=== PATIENT | female | born 1950 | race African-American/Black ===

== ENCOUNTER → 2016-05-26 | Outpatient (CLI) | payer MEDICARE, BC ==
[2016-05-26 10:02] LABS: ALBUMIN 3.5 g/dL (3.4-5.0); CREATININE 0.9 mg/dL (0.6-1.0); GFR 75.8; POTASSIUM 3.5 mmol/L (3.5-5.1); TOTAL BILIRUBIN 0.7 mg/dL (0.2-1.0); TOTAL PROTEIN 6.9 g/dL (6.4-8.2)
[2016-05-26 10:03] LABS: CHOLESTEROL/HDL RATIO 2.4
== END | disposition home or self-care (01) ==
LOC: LAB 08:58
DX: I49.3 Ventricular premature depolarization (principal); E78.00 Pure hypercholesterolemia, unspecified
CPT/HCPCS: 36415; 80053; 80061; 83735

== ENCOUNTER → 2017-05-23 | Outpatient (CLI) | payer MEDICARE, BC | END | disposition home or self-care (01) | LOC: PNCL 08:04 | DX: M50.322 Other cervical disc degeneration at C5-C6 level (principal); G89.29 Other chronic pain; I10 Essential (primary) hypertension; M19.90 Unspecified osteoarthritis, unspecified site; Z86.79 Personal history of other diseases of the circulatory system; K21.9 Gastro-esophageal reflux disease without esophagitis; E78.5 Hyperlipidemia, unspecified; Z87.891 Personal history of nicotine dependence; Z98.890 Other specified postprocedural states; Z79.899 Other long term (current) drug therapy; Z79.82 Long term (current) use of aspirin | CPT/HCPCS: G0463 ==

== ENCOUNTER 2018-12-16 22:49 | Emergency (ER) | payer MEDICARE, BC ==
[~2018-12-16] VITALS: Ht 165.1 cm; Wt 77.3 kg
[~2018-12-16 22:49] MED LIST: ACET-704 PO; ASPI-612 PO; CARV12.511 PO; CLOP75TA PO; ISOS60TA2 PO; LISI10TA2 PO; NITR0.4T24 SL; SPIR25TA5 PO
--- NOTE | 2018-12-16 23:36 | RAD ---
Chest AP portable at 2248: Reason for examination: Cough. Comparison is made to previous study dated 07/12/2017. The heart size is enlarged but stable. Mediastinum is unremarkable. Lung vyas are clear. No acute bony abnormalities are seen. Impression: Cardiomegaly. No acute cardiopulmonary disease. Electronically signed by: Isabella Kim MD (12/16/2018 11:33 PM) [facility]
[2018-12-16 23:47] LABS: BASO % 0 % (0-3); EOS # 0.2 x10^3/uL (0.0-0.7); EOS % 4 % (0-3); HEMATOCRIT 37.4 % (36.0-47.0); HEMOGLOBIN 12.4 g/dL (12.0-15.5); LYMPH # 0.7 x10^3/uL (1.0-4.8); LYMPH % 10 % (24-48); MEAN CORPUSCULAR HEMOGLOBIN 31 pg (25-35); MEAN CORPUSCULAR HGB CONC 33 g/dL (31-37); MEAN CORPUSCULAR VOLUME 93 fL (79-100); MONO # 0.4 x10^3/uL (0.0-1.1); MONO % 7 % (0-9); NEUT # 5.4 x10^3/uL (1.8-7.7); NEUT % 80 % (31-73); PLATELET COUNT 360 x10^3/uL (140-400); RED CELL DISTRIBUTION WIDTH 14.2 % (11.5-14.5); WHITE BLOOD COUNT 6.8 x10^3/uL (4.0-11.0)
[2018-12-16 23:52] LABS: BILIRUBIN,URINE SMALL (NEG); CLARITY,URINE CLEAR; COLOR,URINE YELLOW; NITRITE,URINE NEGATIVE (NEG); PROTEIN,URINE NEGATIVE (NEG-TRACE)
[2018-12-16 23:57] LABS: HYALINE CASTS, URINE FEW /HPF
[2018-12-16 23:58] LABS: BACTERIA,URINE 0 /HPF (0-FEW); SQUAMOUS EPITHELIAL CELL,UR FEW /LPF; WBC,URINE OCC /HPF (0-4)
[2018-12-16 23:58] LABS: CALCIUM 9.1 mg/dL (8.5-10.1); GFR 66.7; POTASSIUM 3.8 mmol/L (3.5-5.1)
[2018-12-17] LABS: ALBUMIN 3.4 g/dL (3.4-5.0); MAGNESIUM 1.9 mg/dL (1.8-2.4); TOTAL BILIRUBIN 0.4 mg/dL (0.2-1.0); TOTAL PROTEIN 6.7 g/dL (6.4-8.2)
--- NOTE | 2018-12-17 00:02 | RAD ---
CT head without contrast PQRS statement: CT scans at this facility use dose reduction including either automated exposure control, iterative reconstructions, and /or weight based radiation dosing via mA and kV modification when appropriate to reduce radiation dose to as low as reasonably achievable. HISTORY: Slurred speech. TECHNIQUE: 5 mm axial noncontrast imaging skull base to vertex. FINDINGS: 1 cm cavitary lesion left cerebellum image 9 likely a small chronic infarct. No intracranial hemorrhage, mass, hydrocephalus, extra-axial fluid collections or infarction. No acute ischemic change. Imaged orbits, mastoids, paranasal sinuses and bones are unremarkable. IMPRESSION: No acute intracranial CT abnormality. Small chronic cerebellar infarct. Electronically signed by: Aniket Yeung MD (12/16/2018 11:59 PM) [facility]
[2018-12-17] MEDS ORDERED: AZIT250T PO (00:27)
[2018-12-17] MEDS ORDERED: BENZ100C PO (00:27)
--- NOTE | 2018-12-17 00:28 | PHYS DOC ---
Past Medical History Past Medical History: Hypertension, [place] Additional Past Surgical Histo: CARDIAC STENTS Alcohol Use: None Drug Use: None Adult General Chief Complaint Chief Complaint: SLURRED SPEECH HPI HPI Patient is a 68-year-old female who presents with complaint of cough, congestion, hoarseness and sore throat for the last few days. Patient is concerned that she may need an antibiotic. She states that her son told her that he wanted her to come in to the emergency room because he thought she had slurred speech for the last 3 days and was worried about the possibility of a stroke. Patient denies any lateralizing weakness and states that she feels like her speech is more due to the congestion. She denies any chest pain or shortness of breath. She also denies any headache. She denies any fever.[] Review of Systems Review of Systems Constitutional: Denies fever or chills [] HENT: Positive congestion and sore throat [] Respiratory: Positive cough without shortness of breath [] Cardiovascular: No additional information not addressed in HPI [] Musculoskeletal: Denies back pain or joint pain [] Integument: Denies rash or skin lesions [] Neurologic: Denies headache, focal weakness or sensory changes [] All other systems were reviewed and found to be within normal limits, except as documented in this note. Current Medications Current Medications Current Medications Medications (Trade) Dose Ordered Sig/Reddy Start Time Stop Time Status Last Admin Dose Admin Azithromycin (Zithromax) 500 mg 1X ONCE 12/17/18 01:00 12/17/18 00:57 DC 12/17/18 00:53 500 MG Allergies Allergies Allergies Coded Allergies Type Severity Reaction Last Updated Verified No Known Drug Allergies 05/12/17 No Physical Exam Physical Exam Constitutional: Well developed, well nourished, no acute distress, non-toxic appearance. [] HENT: Normocephalic, atraumatic, bilateral external ears normal, oropharynx moist, no oral exudates, nose normal. [] Eyes: PERRLA, EOMI, conjunctiva normal, no discharge. [] Neck: Normal range of motion, no tenderness, supple, no stridor. [] Cardiovascular: Regular rate and rhythm[] Lungs & Thorax: Bilateral breath sounds clear to auscultation [] Abdomen: Bowel sounds normal, soft, no tenderness. [] Skin: Warm, dry, no erythema, no rash. [] Extremities: No tenderness, no cyanosis, no clubbing, ROM intact. [] Neurologic: Alert and oriented X 3, no focal deficits noted. [] Current Patient Data Vital Signs Vital Signs Date Time Temp Pulse Resp B/P (MAP) Pulse Ox O2 Delivery O2 Flow Rate FiO2 12/17/18 00:30 96 20 107/63 (78) 100 Room Air 12/16/18 23:00 98.5 98.5 Lab Values Laboratory Tests Test 12/16/18 23:40 12/16/18 23:45 White Blood Count 6.8 x10^3/uL (4.0-11.0) Red Blood Count 4.00 x10^6/uL (3.50-5.40) Hemoglobin 12.4 g/dL (12.0-15.5) Hematocrit 37.4 % (36.0-47.0) Mean Corpuscular Volume 93 fL (79-100) Mean Corpuscular Hemoglobin 31 pg (25-35) Mean Corpuscular Hemoglobin Concent 33 g/dL (31-37) Red Cell Distribution Width 14.2 % (11.5-14.5) Platelet Count 360 x10^3/uL (140-400) Neutrophils (%) (Auto) 80 % (31-73) H Lymphocytes (%) (Auto) 10 % (24-48) L Monocytes (%) (Auto) 7 % (0-9) Eosinophils (%) (Auto) 4 % (0-3) H Basophils (%) (Auto) 0 % (0-3) Neutrophils # (Auto) 5.4 x10^3/uL (1.8-7.7) Lymphocytes # (Auto) 0.7 x10^3/uL (1.0-4.8) L Monocytes # (Auto) 0.4 x10^3/uL (0.0-1.1) Eosinophils # (Auto) 0.2 x10^3/uL (0.0-0.7) Basophils # (Auto) 0.0 x10^3/uL (0.0-0.2) Sodium Level 145 mmol/L (136-145) Potassium Level 3.8 mmol/L (3.5-5.1) Chloride Level 107 mmol/L (98-107) Carbon Dioxide Level 29 mmol/L (21-32) Anion Gap 9 (6-14) Blood Urea Nitrogen 13 mg/dL (7-20) Creatinine 1.0 mg/dL (0.6-1.0) Estimated GFR (Cockcroft-Gault) 66.7 BUN/Creatinine Ratio 13 (6-20) Glucose Level 178 mg/dL (70-99) H Calcium Level 9.1 mg/dL (8.5-10.1) Magnesium Level 1.9 mg/dL (1.8-2.4) Total Bilirubin 0.4 mg/dL (0.2-1.0) Aspartate Amino Transferase (AST) 23 U/L (15-37) Alanine Aminotransferase (ALT) 20 U/L (14-59) Alkaline Phosphatase 77 U/L (46-116) Total Protein 6.7 g/dL (6.4-8.2) Albumin 3.4 g/dL (3.4-5.0) Albumin/Globulin Ratio 1.0 (1.0-1.7) Urine Collection Type Unknown Urine Color Yellow Urine Clarity Clear Urine pH 6.0 Urine Specific [place] 1.025 Urine Protein Negative mg/dL (NEG-TRACE) Urine Glucose (UA) 100 mg/dL (NEG) Urine Ketones (Stick) Negative mg/dL (NEG) Urine Blood Small (NEG) Urine Nitrite Negative (NEG) Urine Bilirubin Small (NEG) Urine Urobilinogen Dipstick 1.0 mg/dL (0.2 mg/dL) Urine Leukocyte Esterase Small (NEG) Urine RBC 3-5 /HPF (0-2) Urine WBC Occ /HPF (0-4) Urine Squamous Epithelial Cells Few /LPF Urine Bacteria 0 /HPF (0-FEW) Urine Hyaline Casts Few /HPF Urine Mucus Mod /LPF Laboratory Tests 12/16/18 23:40 Laboratory Tests 12/16/18 23:40 EKG EKG [] Radiology/Procedures Radiology/Procedures [] Impressions: CT head without contrast PQRS statement: CT scans at this facility use dose reduction including either automated exposure control, iterative reconstructions, and /or weight based radiation dosing via mA and kV modification when appropriate to reduce radiation dose to as low as reasonably achievable. HISTORY: Slurred speech. TECHNIQUE: 5 mm axial noncontrast imaging skull base to vertex. FINDINGS: 1 cm cavitary lesion left cerebellum image 9 likely a small chronic infarct. No intracranial hemorrhage, mass, hydrocephalus, extra-axial fluid collections or infarction. No acute ischemic change. Imaged orbits, mastoids, paranasal sinuses and bones are unremarkable. IMPRESSION: No acute intracranial CT abnormality. Small chronic cerebellar infarct. Electronically signed by: Aniket Yeung MD (12/16/2018 11:59 PM) [facility] PROCEDURE: PORTABLE CHEST 1V Chest AP portable at 2248: Reason for examination: Cough. Comparison is made to previous study dated 07/12/2017. The heart size is enlarged but stable. Mediastinum is unremarkable. Lung vyas are clear. No acute bony abnormalities are seen. Impression: Cardiomegaly. No acute cardiopulmonary disease. Electronically signed by: Isabella Kim MD (12/16/2018 11:33 PM) [facility] Course & Med Decision Making Course & Med Decision Making Pertinent Labs and Imaging studies reviewed. (See chart for details) [] Dragon Disclaimer Dragon Disclaimer This electronic medical record was generated, in whole or in part, using a voice recognition dictation system. Departure Departure Impression: Primary Impression: Bronchitis Disposition: 01 HOME, SELF-CARE Condition: IMPROVED Referrals: NO PCP (PCP) Patient Instructions: Acute Bronchitis Scripts Benzonatate (TESSALON PERLE) 100 Mg Capsule 1 CAP PO TID PRN for COUGH, #21 CAP Prov: GAYATRI MUHAMMAD Jr. DO 12/17/18 Azithromycin (ZITHROMAX) 250 Mg Tablet 1 PKG PO UD, #6 TAB Prov: GAYATRI MUHAMMAD Jr. DO 12/17/18 GAYATRI MUHAMMAD Jr. DO Dec 17, 2018 00:27
[2018-12-17 00:30] VITALS: BP 107/63
[2018-12-17] MEDS ORDERED: AZITHROMYCIN 250 MG TABLET. PO ONE (01:00)
--- NOTE | 2018-12-17 05:47 | EKG ---
[facility] [address] [place] [address] Test Date: 2018-12-16 Test Time: 23:31:24 Pat Name: ADOLFO ORTIZ Department: Room: Gender: F Portrait Photographer: : 1950 Requested By: GAYATRI MUHAMMAD Order Number: [id number] Reading MD: Measurements Intervals [place] Rate: 88 P: 36 WI: 156 QRS: 62 QRSD: 94 T: -77 QT: 380 QTc: 463 Interpretive Statements SINUS RHYTHM COMPLEX(ES) WITH ABERRANT INTRAVENTRICULAR CONDUCTION VENTRICULAR PREMATURE COMPLEX(ES) LVH WITH REPOLARIZATION ABNORMALITY ABNORMAL ECG RI6.01 No previous ECG available for comparison
== END 2018-12-17 00:57 | disposition home or self-care (01) ==
LOC: ER 22:49
DX: J40 Bronchitis, not specified as acute or chronic (principal); R51 Headache; I10 Essential (primary) hypertension; I25.2 Old myocardial infarction
CPT/HCPCS: 36415; 70450; 71045; 80053; 81001; 83735; 85025; 93005; 99285; Q0144; 87086

== ENCOUNTER 2020-07-08 12:00 | Emergency (ER) | payer MEDICARE, BC ==
[~2020-07-08] VITALS: Ht 152.4 cm; Wt 57.0 kg
[~2020-07-08 12:00] MED LIST changes: -ASPI-612 PO; +ASPI-886 PO; +AZIT250T PO; +BENZ100C PO; -ISOS60TA2 PO; +ISOS60TA55 PO; +LISI10TA16 PO; -LISI10TA2 PO
[2020-07-08 12:40] LABS: BASO % 1 % (0-3); EOS # 0.1 x10^3/uL (0.0-0.7); EOS % 2 % (0-3); HEMATOCRIT 34.8 % (36.0-47.0); HEMOGLOBIN 11.1 g/dL (12.0-15.5); LYMPH # 0.6 x10^3/uL (1.0-4.8); LYMPH % 10 % (24-48); MEAN CORPUSCULAR HEMOGLOBIN 29 pg (25-35); MEAN CORPUSCULAR HGB CONC 32 g/dL (31-37); MEAN CORPUSCULAR VOLUME 90 fL (79-100); MONO # 0.3 x10^3/uL (0.0-1.1); MONO % 5 % (0-9); NEUT % 83 % (31-73); PLATELET COUNT 466 x10^3/uL (140-400); RED BLOOD COUNT 3.89 x10^6/uL (3.50-5.40); RED CELL DISTRIBUTION WIDTH 22.8 % (11.5-14.5)
[2020-07-08 12:51] LABS: CALCIUM 9.1 mg/dL (8.5-10.1); CREATININE 0.9 mg/dL (0.6-1.0); GFR 74.9; POTASSIUM 4.3 mmol/L (3.5-5.1)
[2020-07-08 13:00] LABS: ALBUMIN 3.5 g/dL (3.4-5.0); ALBUMIN/GLOBULIN RATIO 1.3 (1.0-1.7); TOTAL BILIRUBIN 0.9 mg/dL (0.2-1.0); TOTAL PROTEIN 6.2 g/dL (6.4-8.2)
--- NOTE | 2020-07-08 13:01 | RAD ---
XR CHEST 1V History: Reason: cough, covid? / Spl. Instructions: / History: Comparison: December 16, 2018 Findings: Multifocal ill-defined opacities bilaterally. No pleural effusion. Left costophrenic angle not well e valuated. Left-sided pacemaker. Increased enlarged cardiac size. Impression: 1. Multifocal ill-defined opacities bilaterally, may represent infection including viral pneumonia o r pulmonary edema. 2. Increased enlarged cardiac size, may indicate cardiomegaly and potential pericardial effusion. Electronically signed by: Yunior Camarena DO (07/08/2020 12:58 PM) [id number]
[2020-07-08 13:59] LABS: PLT ESTIMATE INCREASED (ADEQUATE)
[2020-07-08 14:00] LABS: ANISOCYTOSIS MOD; BIZZARE CELLS OCC; OVALOCYTES FEW
[2020-07-08] MEDS ORDERED: FUROSEMIDE 40 MG/4 ML VIAL. IVP ONE (14:00)
[2020-07-08] MEDS ORDERED: ACETAMINOPHEN 500 MG TABLET PO ONE (14:00)
[2020-07-08 17:11] VITALS: BP 108/77
--- NOTE | 2020-07-08 18:04 | ED.ADGEN ---
Past Medical History Past Medical History: CHF, Hypertension, [place] Additional Past Medical Histor: "MY SON SAYS I HAD A STROKE BUT I'M NOT SURE." "BOWEL LEAKAGE" Past Surgical History: Other Additional Past Surgical Histo: CARDIAC STENTS,DEFIBRILATOR PLACEMENT Smoking Status: Former Smoker Alcohol Use: None Drug Use: None General Adult EDM: Chief Complaint: SHORTNESS OF BREATH HPI: HPI: Patient is 70-year-old female who presents to the emergency room complaining of shortness of breath. Patient has known severe congestive heart failure. She typically follows up at . Patient states that over the last 24 hours she has had increasing shortness of breath. She states that she took some furosemide today. She states that she had been instructed to take it only every other day but feels like she is collecting fluid again now that she has decreased her furosemide. She denies any kind of chest pain. Patient is adamant that she does not want to be admitted to the hospital but does not want some help so she is able to go home. Review of Systems: Review of Systems: Complete ROS is negative unless otherwise documented in HPI Current Medications: Current Medications Medications (Trade) Dose Ordered Sig/Reddy Start Time Stop Time Status Last Admin Dose Admin Acetaminophen (Tylenol) 1,000 mg 1X ONCE 07/08/20 14:00 07/08/20 14:01 DC 07/08/20 14:09 1,000 MG Furosemide (Lasix) 40 mg 1X ONCE 07/08/20 14:00 07/08/20 14:01 DC 07/08/20 14:07 40 MG Lorazepam (Ativan Inj) 1 mg 1X ONCE 07/08/20 14:00 07/08/20 14:01 DC 07/08/20 14:08 1 MG Allergies: Allergies: Allergies Coded Allergies Type Severity Reaction Last Updated Verified No Known Drug Allergies 05/12/17 No Physical Exam: PE: General: Awake, alert, NAD. Well Nourished, well hydrated. Cooperative HEENT: Atraumatic, EOMI, PERRL, airway patent, moist oral mucosa Neck: Supple, trachea midline Respiratory: Decreased breath sounds bilaterally with diffuse crackles, normal effort CV: RRR, no murmur, cap refill <2, no edema GI: Soft, nondistended, nontender, no masses MSK: No obvious deformities Skin: Warm, dry, intact Neuro: A&O x3, speech NL, sensory and motor grossly intact, no focal deficits Psych: Normal affect, normal mood, not suicidal or homicidal Current Patient Data: Labs: Laboratory Tests Test 07/08/20 12:27 White Blood Count 6.0 x10^3/uL (4.0-11.0) Red Blood Count 3.89 x10^6/uL (3.50-5.40) Hemoglobin 11.1 g/dL (12.0-15.5) L Hematocrit 34.8 % (36.0-47.0) L Mean Corpuscular Volume 90 fL (79-100) Mean Corpuscular Hemoglobin 29 pg (25-35) Mean Corpuscular Hemoglobin Concent 32 g/dL (31-37) Red Cell Distribution Width 22.8 % (11.5-14.5) H Platelet Count 466 x10^3/uL (140-400) H Neutrophils (%) (Auto) 83 % (31-73) H Lymphocytes (%) (Auto) 10 % (24-48) L Monocytes (%) (Auto) 5 % (0-9) Eosinophils (%) (Auto) 2 % (0-3) Basophils (%) (Auto) 1 % (0-3) Neutrophils # (Auto) 5.0 x10^3/uL (1.8-7.7) Lymphocytes # (Auto) 0.6 x10^3/uL (1.0-4.8) L Monocytes # (Auto) 0.3 x10^3/uL (0.0-1.1) Eosinophils # (Auto) 0.1 x10^3/uL (0.0-0.7) Basophils # (Auto) 0.0 x10^3/uL (0.0-0.2) Platelet Estimate Increased (ADEQUATE) Large Platelets Few Anisocytosis Mod Ovalocytes Few RBC Morphology Bizarre Forms Occ Sodium Level 145 mmol/L (136-145) Potassium Level 4.3 mmol/L (3.5-5.1) Chloride Level 108 mmol/L (98-107) H Carbon Dioxide Level 28 mmol/L (21-32) Anion Gap 9 (6-14) Blood Urea Nitrogen 12 mg/dL (7-20) Creatinine 0.9 mg/dL (0.6-1.0) Estimated GFR (Cockcroft-Gault) 74.9 BUN/Creatinine Ratio 13 (6-20) Glucose Level 114 mg/dL (70-99) H Calcium Level 9.1 mg/dL (8.5-10.1) Total Bilirubin 0.9 mg/dL (0.2-1.0) Aspartate Amino Transferase (AST) 46 U/L (15-37) H Alanine Aminotransferase (ALT) 82 U/L (14-59) H Alkaline Phosphatase 87 U/L (46-116) Creatine Kinase 238 U/L (26-192) H Troponin I Quantitative 0.365 ng/mL (0.000-0.055) BF-Osy-Y-Type Natriuretic Peptide 71269 pg/mL (0-124) H Total Protein 6.2 g/dL (6.4-8.2) L Albumin 3.5 g/dL (3.4-5.0) Albumin/Globulin Ratio 1.3 (1.0-1.7) Laboratory Tests 07/08/20 12:27 Laboratory Tests 07/08/20 12:27 Vital Signs: Vital Signs Date Time Temp Pulse Resp B/P (MAP) Pulse Ox O2 Delivery O2 Flow Rate FiO2 07/08/20 17:11 100 108/77 (87) 98 BiPAP/CPAP 07/08/20 12:03 97.8 20 97.8 EKG: EKG: [] Heart Score: C/O Chest Pain: N/A Risk Factors: Risk Factors: DM, Current or recent (<one month) smoker, HTN, HLP, family history of CAD, obesity. Risk Scores: Score 0 - 3: 2.5% MACE over next 6 weeks - Discharge Home Score 4 - 6: 20.3% MACE over next 6 weeks - Admit for Clinical Observation Score 7 - 10: 72.7% MACE over next 6 weeks - Early Invasive Strategies Radiology/Procedures: Radiology/Procedures: [] Course & Med Decision Making: Course & Med Decision Making Pertinent Labs and Imaging studies reviewed. (See chart for details) Patient is 70-year-old female who presents to the emergency room with shortness of breath. Patient appears to be in acute on chronic congestive heart failure. Chest x-ray shows severe pulmonary edema. Patient has an elevated BNP and troponin at this time. Patient was given Lasix upon arrival. She is not requiring oxygen. Patient is very adamant about not being admitted to the hospital. She asked if there was any other way we could do this. I discussed with the patient that there was no safe way for me to discharge her home. I did discuss with her that we could try some treatments here in the emergency room that would help but would not make it safe for her to go home. Patient was given Lasix and was placed on BiPAP. She did have significant improvement in symptoms on BiPAP. Patient was offered admission again and declines. Patient will sign out AMA. Patient has requested to leave AGAINST MEDICAL ADVICE. I have discussed the benefits of staying for a full work up and the patient would like to leave. I discussed the risks of leaving including but not limited to , permenant end-organ damage, worsening of condition and patient stated understanding. Patient signed out against medical advice. Dragon Disclaimer: Dragon Disclaimer: This electronic medical record was generated, in whole or in part, using a voice recognition dictation system. Critical Care Time Critical Care: Authorized and Performed by: Claudia William MD Total critical care time: approximately 35 minutes Due to a high probability of clinically significant, life threatening deteriorat ion, the patient required my highest level of preparedness to intervene emergently and I personally spent this critical care time directly and personally managing the patient. This critical care time included obtaining a history; examining the patient; pulse oximetry; ventilator management if necess julianne; ordering and review of studies; arranging urgent treatment with development of a management plan; evaluation of patient's response to treatment; frequent reassessment; discussion with patient/family; and, discussions with other providers. This critical care time was performed to assess and manage the high probability of imminent, life-threatening deterioration that could result in multi-organ failure. It was exclusive of separately billable procedures and treating other patients and teaching time. Please see MDM section and the rest of the note for further information on patient assessment and treatment. Departure Departure Impression: Primary Impression: Acute on chronic congestive heart failure Additional Impression: Pulmonary edema Disposition: LEFT AGAINST MEDICAL ADVICE Condition: GUARDED Referrals: NO PCP (PCP) Problem Qualifiers CLAUDIA WILLIAM MD July 08, 2020 18:03
== END 2020-07-08 17:44 | disposition left against medical advice (07) ==
LOC: ER 12:00
DX: I11.0 Hypertensive heart disease with heart failure (principal); I50.1 Left ventricular failure, unspecified; I25.2 Old myocardial infarction
CPT/HCPCS: 36415; 71045; 80053; 82550; 83880; 84484; 85025; 93005; 94660; 96374; 96375; 99285; J1940; J2060

== ENCOUNTER 2021-02-15 02:04 | Emergency (ER) | payer MEDICARE, BC ==
[~2021-02-15] VITALS: Ht 165.1 cm; Wt 50.4 kg
[~2021-02-15 02:04] MED LIST changes: +APIX5TAB PO; +ATOR80TA72 PO; +FURO20TA3 PO; +GABA100C6 PO; +GABA300C18 PO; +LAMO25TA31 PO; +LOSA25TA PO; +METO-239 PO; +PANT40TA6 PO
--- NOTE | 2021-02-15 02:29 | PHYS DOC ---
Past Medical History Past Medical History: Anxiety, CHF, CVA, Hypertension, MA, Other Additional Past Medical Histor: "BOWEL LEAKAGE",RIB FX'S/LUNG PROBLEM Past Surgical History: Angioplasty, Other Additional Past Surgical Histo: CARDIAC STENTS,DEFIBRILATOR PLACEMENT Smoking Status: Never Smoker Alcohol Use: None Drug Use: None General Adult HPI: HPI: Patient is a 70 year old female who presents with shortness of breath. She has daily episodes of shortness of breath, and she admittedly also has anxiety. She has congestive heart failure. She was discharged from [facility] after 3-day inpatient stay for congestive heart failure exacerbation. She reports that she is actually much better than she was prior to her admission there. All of her cardiac care has been [facility]. She has a scheduled appointment to see her marking devices assembler later this month. She denies chest pain. She reports that her lower extremity swelling is much better than it usually is. She denies cough, hemoptysis, dizziness, diaphoresis. She does report some PND symptoms, which have been present for years, unchanged today. She has been living with her son and his family for the past year, and she reports that her son is admittedly frustrated with her frequent complaints of shortness of breath. He has reportedly asked her to address her anxiety and panic issues with her primary care physician, but she has not done this yet. She has no active dyspnea at present, reports that she feels better now that she is here. Review of Systems: Review of Systems: Constitutional: Denies fever or chills. [] Eyes: Denies change in visual acuity. [] HENT: Denies nasal congestion or sore throat. [] Respiratory: Denies cough. Reports shortness of breath and paroxysmal nocturnal dyspnea. Cardiovascular: Denies chest pain. She has chronic but improved lower extremity swelling. GI: Denies abdominal pain, nausea, vomiting Musculoskeletal: Denies back pain or joint pain. [] Integument: Denies rash. [] Neurologic: Denies headache, focal weakness or sensory changes. [] Psychiatric: Anxiety, insomnia, denies SI or HI. [] Heart Score: C/O Chest Pain: No Risk Factors: Risk Factors: DM, Current or recent (<one month) smoker, HTN, HLP, family history of CAD, obesity. Risk Scores: Score 0 - 3: 2.5% MACE over next 6 weeks - Discharge Home Score 4 - 6: 20.3% MACE over next 6 weeks - Admit for Clinical Observation Score 7 - 10: 72.7% MACE over next 6 weeks - Early Invasive Strategies Allergies: Allergies: Allergies Coded Allergies Type Severity Reaction Last Updated Verified No Known Drug Allergies 05/12/17 No Physical Exam: PE: Constitutional: Well developed, well nourished, no acute distress, non-toxic appearance. [] HENT: Normocephalic, atraumatic Eyes: Sclera are clear, anicteric Neck: Normal range of motion, no tenderness, supple, no stridor. Achy midline, no JVD Cardiovascular:Heart rate regular rhythm, precordial heave noted, systolic murmu r noted, +2 posterior tibial and +2 radial pulses bilaterally. Lungs & Thorax: Bilateral breath sounds clear to auscultation, no rales, rhonchi or wheezes. Equal chest rise. Speaks in full and clear sentences, no evidence of distress Abdomen: Abdomen soft, nondistended, nontender to palpation. Skin: Warm, dry, no erythema, no rash. [] Extremities: No tenderness, no cyanosis, no clubbing, ROM intact, no calf tenderness. Bilateral trace symmetric lower extremity pitting edema. Neurologic: Alert and oriented X 3, normal motor function, normal sensory function, no focal deficits noted. [] Psychologic: She is anxious, but she is pleasant and cooperative. EKG: EKG: EKG is interpreted at 0221 Rhythm is sinus Rate is 93 bpm [place] is right LVH No STEMI Radiology/Procedures: Radiology/Procedures: IMAGING REPORT Signed PATIENT: CLARK AGUIRRE CACCOUNT: [id number] : 1950 LOCATION: ER AGE: 70 SEX: F EXAM STATUS: PRE ER ORD. PHYSICIAN: SUKHWINDER VELASCO DO REASON: dyspnea PROCEDURE: PORTABLE CHEST 1V XR CHEST 1V INDICATION: dyspnea / Spl. Instructions: / History: . COMPARISON STUDY: None. FINDINGS: Left pectoral ICD/pacemaker Lungs: Hyperexpanded lung volume. No pulmonary mass or consolidation. The tracheobronchial tree and hilar structures are normal. Pleura: No pleural effusion or pneumothorax. Heart and Mediastinum: Marked cardiomegaly. The great vessels of the thorax are normal. IMPRESSION: No consolidation. Electronically signed by: Nidia Ingram MD (02/15/2021 3:19 AM) [facility] DICTATED and SIGNED BY: NIDIA INGRAM MD DATE: 02/15/21 [id number] Course & Med Decision Making: Course & Med Decision Making Pertinent Labs and Imaging studies reviewed. (See chart for details) I discussed the findings, differential diagnosis and plan of care with the patient. She does demonstrate evidence of significant cardiomegaly on chest x- ray, though there is no evidence of pulmonary edema. Oxygen saturation, on room air, is noted to be 99 to 100%. Blood pressure stable. Heart rate is stable. She denies any active dyspnea. She manifests no evidence of respiratory distress. She is already taking anticoagulant medication. She has been compliant with all dietary and medication treatment. There is no evidence of an acute congestive heart failure exacerbation. Her troponin is elevated, though serially trending downward, and I suspect her troponins are chronically elevated secondary to age-related conditions and chronic congestive heart failure. I recommend she contact her primary care physician to discuss her anxiety issues further, and I recommend she keep her appointment with her marking devices assembler at [facility]. She is comfortable with the plan for discharge home. Strict return precautions are given. She verbalized understanding. Brian Disclaimer: Brian Disclaimer: This electronic medical record was generated, in whole or in part, using a voice recognition dictation system. Departure Departure Impression: Primary Impression: Dyspnea Additional Impressions: Congestive heart failure (CHF) Anxiety Disposition: 01 HOME / SELF CARE / HOMELESS Condition: STABLE Referrals: NO PCP (PCP) Patient Instructions: Anxiety and Panic Attacks, Heart Failure Additional Instructions: Use the prescribed medicine as needed for sleep and anxiety. Continue to take your regularly prescribed medications by your marking devices assembler and primary care doctor. Continue to eat a low-sodium, heart healthy diet. Return to the ER for more severe shortness of breath, chest pain, vomiting, dizziness, weakness, if you are acutely injured or for any other concerns you may have. Keep your scheduled appointment with your marking devices assembler this month. Also see your primary care physician and discuss your physical symptoms and your anxiety symptoms further, you may ultimately benefit from taking a scheduled, daily medication to help with your anxiety symptoms. Scripts Hydroxyzine Pamoate (VISTARIL) 25 Mg Capsule 1 CAP PO BID for anxiety, #20 CAP 1 Refill Prov: SUKHWINDER VELASCO DO 02/15/21 SUKHWINDER VELASCO DO Feb 15, 2021 02:29
[2021-02-15 02:49] LABS: BASO # 0.1 x10^3/uL (0.0-0.2); BASO % 1 % (0-3); EOS # 0.3 x10^3/uL (0.0-0.7); EOS % 5 % (0-3); HEMATOCRIT 36.3 % (36.0-47.0); HEMOGLOBIN 11.6 g/dL (12.0-15.5); LYMPH # 0.8 x10^3/uL (1.0-4.8); LYMPH % 15 % (24-48); MEAN CORPUSCULAR HEMOGLOBIN 30 pg (25-35); MEAN CORPUSCULAR HGB CONC 32 g/dL (31-37); MEAN CORPUSCULAR VOLUME 92 fL (79-100); MONO # 0.3 x10^3/uL (0.0-1.1); MONO % 6 % (0-9); NEUT # 3.9 x10^3/uL (1.8-7.7); NEUT % 73 % (31-73); PLATELET COUNT 500 x10^3/uL (140-400); RED BLOOD COUNT 3.95 x10^6/uL (3.50-5.40); RED CELL DISTRIBUTION WIDTH 17.1 % (11.5-14.5); WHITE BLOOD COUNT 5.4 x10^3/uL (4.0-11.0)
--- NOTE | 2021-02-15 02:55 | EKG ---
[facility] [address] [place] [address] Test Date: 2021-02-15 Test Time: 02:18:55 Pat Name: CLARK AGUIRRE Department: Room: Gender: F Lab Intern: : 1950 Requested By: SUKHWINDER VELASCO Order Number: [id number] Reading MD: Measurements Intervals [place] Rate: 93 P: 59 MA: 188 QRS: 108 QRSD: 108 T: -69 QT: 374 QTc: 468 Interpretive Statements SINUS RHYTHM VENTRICULAR PREMATURE COMPLEX(ES) RIGHTWARD AXIS LVH WITH REPOLARIZATION ABNORMALITY ABNORMAL ECG RI6.02 No previous ECG available for comparison
[2021-02-15 03:02] LABS: CALCIUM 8.7 mg/dL (8.5-10.1); GFR 66.3; POTASSIUM 3.2 mmol/L (3.5-5.1)
[2021-02-15 03:07] LABS: ALBUMIN 3.4 g/dL (3.4-5.0); ALBUMIN/GLOBULIN RATIO 0.9 (1.0-1.7); MAGNESIUM 2.4 mg/dL (1.8-2.4); TOTAL BILIRUBIN 1.1 mg/dL (0.2-1.0); TOTAL PROTEIN 7.1 g/dL (6.4-8.2)
--- NOTE | 2021-02-15 03:22 | RAD ---
XR CHEST 1V INDICATION: dyspnea / Spl. Instructions: / History: . COMPARISON STUDY: None. FINDINGS: Left pectoral ICD/pacemaker Lungs: Hyperexpanded lung volume. No pulmonary mass or consolidation. The tracheobronchial tree and h ilar structures are normal. Pleura: No pleural effusion or pneumothorax. Heart and Mediastinum: Marked cardiomegaly. The great vessels of the thorax are normal. IMPRESSION: No consolidation. Electronically signed by: Edin Navas MD (02/15/2021 3:19 AM) [facility]
[2021-02-15] MEDS ORDERED: hydrOXYzine 25 MG TABLET PO ONE (03:45)
[2021-02-15] MEDS ORDERED: HYDR25CA PO (06:03)
[2021-02-15 07:15] VITALS: BP 105/71
== END 2021-02-15 08:40 | disposition home or self-care (01) ==
LOC: ER 02:04
DX: I11.0 Hypertensive heart disease with heart failure (principal); I50.9 Heart failure, unspecified; F41.9 Anxiety disorder, unspecified; I25.2 Old myocardial infarction; Z86.73 Personal history of transient ischemic attack (TIA), and cerebral infarction without residual deficits; Z95.5 Presence of coronary angioplasty implant and graft
CPT/HCPCS: 36415; 71045; 80053; 83735; 83880; 84484; 85025; 93005; 99285-25